=== PATIENT | male | born 1970 | race Caucasian/White ===

== ENCOUNTER 2025-01-14 02:04 | Emergency (ER) | payer OTHER, SELFPAY ==
--- NOTE | 2025-01-14 | ECG_ITS ---
Test Reason : SOB Blood Pressure : */* mmHG Vent. Rate : 85 BPM Atrial Rate : 85 BPM P-R Int : 130 ms QRS Dur : 82 ms QT Int : 372 ms P-R-T Axes : 268 -88 -86 degrees QTcB Int : 442 ms Poor data quality Normal sinus rhythm Left axis deviation Pulmonary disease pattern Abnormal ECG No previous ECGs available Referred By: Sandra Perez Electronically Signed By: Chris Ramsey
--- NOTE | ~2025-01-14 | CT_ITS ---
CLINICAL HISTORY: sob, cough, r o pna vs atelectasis Exam: CT chest without intravenous contrast. Comparison: None. Findings: Images degraded by patient motion, primarily respiratory motion. Tnfg-xa-mcvtyxyy emphysematous changes throughout the lungs. No focal areas of consolidation. No pleural effusion or pneumothorax. Overall heart size is within normal limits. No pathologically enlarged lymph nodes. No free fluid or free air within the upper abdomen. No acute bony abnormality. Impression: Emphysematous changes throughout the lungs without acute finding. This document has been electronically signed by: Yosvany Pittman MD on 01/14/2025 07:01:02
--- NOTE | ~2025-01-14 | XR_ITS ---
CLINICAL HISTORY: dyspnea CHEST X-RAY FRONTAL VIEW COMPARISON: None. FINDINGS: A single frontal view of the chest was performed. Cardiac size is within normal limits. Lungs are hyperinflated. An opacity within the lateral aspect of the right lung base might be related to a portion of one of the right lower ribs, or alternatively atelectasis/infiltrate. CT chest in the ER is advised for a more accurate assessment. Faint increased density within a portion of the left mid to lower lung is thought to be secondary to the patient's breast tissues. Remaining portions of the lungs are unremarkable. No pneumothorax or definite pleural effusion. IMPRESSION: 1. Opacity within the lateral aspect of the right lung base might be related to a portion of one of the right lower ribs, or alternatively atelectasis/infiltrate. CT chest in the ER is advised for a more accurate assessment. This document has been electronically signed by: Bob Catalan M.D. on 01/14/2025 04:35:48
[2025-01-14 02:15] VITALS: BP 150/90; PULSE 95; RESP 20; TEMP 36.4; O2SAT 94
[2025-01-14 04:33] VITALS: BP 159/84; PULSE 76; RESP 17; TEMP 36.7; O2SAT 92
--- NOTE | 2025-01-14 06:02 | PC.NURSE ---
patient arrived to ED during down time. see paper chart for further orders and med administration.
--- NOTE | 2025-01-14 06:03 | ED_ITS ---
HPI - SOB/Dyspnea General Chief Complaint: Dyspnea Stated Complaint: Diff Breathing Time Seen by Provider: 01/14/25 06:02 Source: patient and EMS Mode of arrival: EMS Limitations: no limitations History of Present Illness ED Provider: Dr. Sandra Perez HPI Narrative: Please see paper chart, patient came to the ED during down time Patient comes to the emergency room complaining of 4 days of shortness of breath. No history of asthma or COPD, admits to smoking every day for the last 10 years Denies any chest pain Per EMS, they gave him Solu-Medrol. On arrival, patient having difficulty talking due to shortness of breath. Related Data Previous Rx's ?Medication ?Instructions ?Recorded albuterol sulfate 90 mcg/actuation 2 puff inhalation Q4-6H PRN 01/14/25 aerosol inhaler shortness of breath or wheezing #8.5 grams cefuroxime axetil 500 mg tablet 500 mg PO BID #10 tabs 01/14/25 prednisone 50 mg tablet 50 mg PO DAILY #4 tabs 01/14/25 Allergies Allergy/AdvReac Type Severity Reaction Status Date / Time No Known Allergies Allergy Verified 01/14/25 06:02 Review of Systems 2 Review of Systems: Constitutional : No Weight loss, No Fever, No Chills, No Night Sweats, No Fatigue, No Malaise ENT/Mouth : No Hearing loss, No Ear Pain, No Nasal Congestion, No Sinus Pain, No Hoarseness, No sore throat, No Rhinorrhea, No Swallowing Difficulty Eyes: No Eye Pain, No Swelling, No Redness, No Foreign Body, No Discharge, No Vision Changes Cardiovascular : No Chest Pain, No SOB, No Dyspnea on Exertion, No Orthopnea, No Edema, No Palpitations Respiratory complaining of shortness of breath, wheezing Gastrointestinal : No Nausea, No Vomiting, No Diarrhea, No Constipation, No abdominal Pain, No Hematochezia, No Melena Genitourinary : no irregular bleeding, No Dysuria, No Urinary Frequency, No Hematuria, No Urinary Incontinence, No Urgency, No Flank Pain, No Urinary Flow Changes, No Hesitancy Musculoskeletal : No joint pain, No Myalgias, No Joint Swelling Skin : No Skin Lesions, No rash Neuro : No Weakness, No Numbness, No Paresthesias, No Loss of Consciousness, No Dizziness, No Headache Psych : No Anxiety/Panic, No Depression, No SI/HI/AH/VH, No Social Issues, Heme/Lymph: No Bruising, No Bleeding,No Lymphadenopathy Endocrine : No Polyuria, No Polydipsia, No Temperature Intolerance [facility] Social History Social History Advance Directives: No Advance Directives Information Provided: Yes Physical Exam 2 Vital Signs: Vital Signs: Last Vital Signs Temp 98.0 F 01/14/25 04:33 Pulse 76 01/14/25 04:33 Resp 17 01/14/25 04:33 BP 159/84 H 01/14/25 04:33 Pulse Ox 92 01/14/25 04:33 O2 Del Method [place] Nasal C annula 01/14/25 04:33 O2 Flow Rate 2 01/14/25 04:33 Const: Other: Appearance: Alert. Oriented X3. No acute distress. Eyes: Pupils equal, round and reactive to light. ENT: Pharynx normal. Neck: Normal inspection. Neck supple. No lymph nodes noted. No crepitus CVS: Normal heart rate and rhythm. Pulses normal. Normal S1 and S2 Respiratory: Bilateral wheezing, moderate air movement Abdomen: Soft and nontender. No rigidity. No distention. Skin: Skin warm and dry. Normal skin color. Normal skin turgor. Extremities: No lower extremity edema. No Lacerations. No Rash Neuro: Oriented X 3. No motor deficit. No sensory deficit. Moving all extremities. No slurred speech. CN 2 through 12 grossly intact Psych: calm, cooperative, normal affect Medical Decision Making Medical Decision Making MDM Narrative: Patient already received Solu-Medrol, receiving magnesium and nebulization treatment hour long Ambulation was attempted, oxygen saturation dropped to 89% , started wheezing all over again Patient receiving another nebulization treatment Chest x-ray: Possible pneumonia versus atelectasis. CT scan of the chest pending Patient receiving empiric IV fluids, azithromycin and ceftriaxone IV No episodes of hypotension, no fever, sepsis is not suspected CT scan shows emphysematous changes without pneumonia. I discussed with the patient that he needs to be seen by pulmonology to pulmonary function test and formally been diagnosed with COPD. Patient currently oxygen saturation is in the 97-98% range on room air. Patient is still finishing up his fluids and antibiotics. Ambulation trial pending. Patient states that he would prefer to go home, states he has an O2 monitor home, if it drops he will come right back. Patient agreeable to do an ambulation trial prior to discharge. Patient was walked a 2nd time, patient's oxygen saturation dropped again to 99%. I strongly recommended admission. Patient states that he does not want to be admitted. I discussed with the patient that we will send medications to his pharmacy. Patient states that if at home he does not have any improvement, he will return and planning to be admitted. Patient leaving AMA Differential Diagnosis Differential Diagnoses: The differential diagnosis associated with the presentation includes (Pneumonia, COPD, asthma, bronchitis) Admission/Observation Consideration of admission/observation: Escalation of care including admission/observation considered (Admission was offered and recommended, patient declined.) Lab Data MDM Lab Attestation statement: I reviewed the patient's lab results. 01/14/25 02:30 01/14/25 02:30 Labs: Lab Results 01/14/25 01/14/25 Range/Units 02:30 03:36 WBC 13.2 H (4.8-10.8) X10*3/uL RBC 4.79 (4.60-5.80) X10*6/uL Hgb 15.2 (14.0-18.0) g/dl Hct 44.7 (42.0-52.0) % MCV 93.3 (80.0-98.0) fL MCH 31.7 (27.0-33.0) pg MCHC 34.0 (31.0-36.0) g/dl RDW 13.0 (11.0-16.0) % Plt Count 347 (160-400) X10*3/uL MPV 8.8 L (9.4-12.4) fL Immature Gran % (Auto) 0.3 (0.0-0.4) % Neut % (Auto) 72.1 (45-73) % Lymph % (Auto) 13.4 L (20-40) % [place] % (Auto) 7.5 (2-11) % Eos % (Auto) 5.5 H (0-4) % Baso % (Auto) 1.2 (0-2) % Lymph # (Auto) 1.8 (1.2-4.9) X10*3/uL [place] # (Auto) 1.0 (0.1-1.2) X10*3/uL Eos # (Auto) 0.7 H (0.0-0.4) X10*3/uL Baso # (Auto) 0.2 (0.0-0.2) X10*3/uL Abs Immat Gran (auto) 0.04 H (0.00-0.03) X10*3/uL Absolute Neuts (auto) 9.5 H (2.0-8.3) x10*3/uL Absolute Nucleated RBC 0.000 (0.0-0.012) X10*3/uL Nucleated RBC % (auto) 0.0 (0.0-0.2) /100WBC VBG pH 7.33 (7.32-7.43) VBG pCO2 62 mmHg VBG pO2 30 mmHg VBG HCO3 33 H (22-26) mmol/L VBG O2 Saturation 41.0 % VBG Base Excess 5.3 mmol/L Sodium 142 (135-145) mmol/L Potassium 4.4 (3.3-5.1) mmol/L Chloride 105 (96-108) mmol/L Carbon Dioxide 28 (22-29) mmol/L Anion Gap 13 (12-20) BUN 15 (9-16) mg/dL Creatinine 0.85 (0.5-1.4) mg/dL Estim Creat Clear Calc TNP Estimated GFR > 60 Random Glucose 128 H (60-115) mg/dL Calcium 9.3 (8.4-10.2) mg/dL Magnesium 3.1 H (1.6-2.6) mg/dL Total Bilirubin 0.3 (0.0-1.0) mg/dL AST 42 H (5-37) U/L ALT 33 (0-40) U/L Alkaline Phosphatase 81 (39-117) U/L Troponin I High Sens 3.2 (<3.5-35.0) ng/L Total Protein 7.7 (6.5-8.0) g/dL Albumin 4.0 (3.5-5.0) g/dL Influenza Type A (PCR) NEGATIVE (Negative) Influenza Type B (PCR) NEGATIVE (Negative) RSV RNA Qual (PCR) NEGATIVE (Negative) SARS-CoV-2 RNA (RT-PCR) NEGATIVE (Negative) Independent Interpretation I performed an independent interpretation of an: CT Scan Radiology Impression Discussion of test interpretation with radiology: I have reviewed the radiologist's reading. Radiologist Impression: CLINICAL HISTORY: sob, cough, r o pna vs atelectasis Exam: CT chest without intravenous contrast. Comparison: None. Findings: Images degraded by patient motion, primarily respiratory motion. [id number] emphysematous changes throughout the lungs. No focal areas of consolidation. No pleural effusion or pneumothorax. Overall heart size is within normal limits. No pathologically enlarged lymph nodes. No free fluid or free air within the upper abdomen. No acute bony abnormality. Impression: Emphysematous changes throughout the lungs without acute finding. Discharge Plan Discharge Clinical Impression: Emphysema lung Patient Disposition: Left Against Medical Advice Instructions: Emphysema (ED) Additional Instructions: Please follow-up with your primary care physician tomorrow. If you have any worsening or new symptoms, please return to the emergency room or call 911 Prescriptions: New prednisone 50 mg tablet 50 mg PO DAILY Qty: 4 0RF albuterol sulfate 90 mcg/actuation HFA aerosol inhaler 2 puff inhalation Q4-6H PRN (Reason: shortness of breath or wheezing) Qty: 8.5 1RF cefuroxime axetil 500 mg tablet 500 mg PO BID Qty: 10 0RF Referrals: Abrahan Prasad MD [Physician] - 01/18/25 Print Language: Lithuanian
[2025-01-14 06:04] LABS: MANUAL DIFF FLAG NO
[2025-01-14 06:07] LABS: Basophils Absolute Auto 0.2 X10*3/uL (0.0-0.2); Basophils Percent Auto 1.2 % (0-2); Eosinophils Absolute Auto 0.7 X10*3/uL (0.0-0.4); Eosinophils Percent Auto 5.5 % (0-4); Hematocrit 44.7 % (42.0-52.0); Hemoglobin 15.2 g/dl (14.0-18.0); Imm Gran Abs Auto 0.04 X10*3/uL (0.00-0.03); Imm Gran Pct Auto 0.3 % (0.0-0.4); Lymphocytes Absolute Auto 1.8 X10*3/uL (1.2-4.9); Lymphocytes Percent Auto 13.4 % (20-40); Mean Corpuscular Hemoglobin 31.7 pg (27.0-33.0); Mean Corpuscular Volume 93.3 fL (80.0-98.0); Mean Platelet Volume 8.8 fL (9.4-12.4); Monocytes Percent Auto 7.5 % (2-11); Neutrophils Absolute Auto 9.5 x10*3/uL (2.0-8.3); Neutrophils Percent Auto 72.1 % (45-73); Platelet Count 347 X10*3/uL (160-400); Red Blood Count 4.79 X10*6/uL (4.60-5.80); White Blood Count 13.2 X10*3/uL (4.8-10.8)
[2025-01-14 06:08] LABS: Influenza A PCR NEGATIVE (Negative); Influenza B PCR NEGATIVE (Negative); Resp Syncy Virus RNA Qual PCR NEGATIVE (Negative); SARS COV2 PCR INHOUSE NEGATIVE (Negative)
--- NOTE | 2025-01-14 06:17 | MHC.EDTECH ---
Addendum entered by Rafael Jimenez 01/14/25 06:23: @0215 pt BIVA, and changed over into hospital gown, VS taken and relatively stable besides increased BP of 150/90 manually, pt was then placed on the cardiac and continuos o2 monitor.Lab work and EKG completed within the room. Call light given for safety and pt made no other needs aware at this time, pt requested a drink and was educated on the need to hold off on drinking fluids until all tests have been completed. Original Note: late entry: @0500 this tech performed an ambulation trial on this pt. The pt walked with a brisk steady gait. when asked how the pt felt he stated I feel okay, just short of breath , pt was walking around the department with 3L o2 at 93%, care home through the trial the NC was removed to see how the pt did on room air and the pt quickly desated to 89%. Pt walked back to room with brisk steady gait. RN made aware of the o2 saturation during trial.
[2025-01-14 06:18] LABS: Troponin-I High Sensitivity 3.2 ng/L (<3.5-35.0); Venous Blood Gas Refer to POC result
[2025-01-14 06:20] LABS: Alanine Aminotransferase 33 U/L (0-40); Alkaline Phosphatase 81 U/L (39-117); Anion Gap 13 (12-20); Aspartate Amino Transferase 42 U/L (5-37); Bilirubin Total 0.3 mg/dL (0.0-1.0); Blood Urea Nitrogen 15 mg/dL (9-16); Calcium 9.3 mg/dL (8.4-10.2); Carbon Dioxide 28 mmol/L (22-29); Chloride 105 mmol/L (96-108); Estimated Glomerular Filt Rate > 60; Glucose Random 128 mg/dL (60-115); Magnesium 3.1 mg/dL (1.6-2.6); Potassium 4.4 mmol/L (3.3-5.1); Sodium 142 mmol/L (135-145); Total Protein 7.7 g/dL (6.5-8.0)
--- OUTSIDE RECORDS SUMMARY | 2025-01-14 06:28 | XMS_ITS | Clinical Summary ---
Author Organization 175 [facility] Address [address] [place] [address] Phone Care Team Providers Care Parking Enforcement Officer Name Role Phone Jesus Manuel Bernard MD Primary Care Provider Allergies No known active allergies Medications DIETARY SUPPLEMENT ORAL Cobalamin Combinations (B-12 Plus Folic Acid) 2500-400 MCG TABLET DISPERSIBLE Route: Take 1 Tablet by mouth daily. - Oral 07/30/20 24 Active cholecalcifer ol (VITAMIN D-3) 50 mcg (2,000 unit) tablet 1 (one) time each day. Route: Take 1 Capsule by mouth daily. - Oral 07/29/20 24 Active gabapentin (NEURONTIN) 300 mg capsule Take 1 capsule (300 mg total) by mouth 2 (two) times a day. Start with 1 tab at bedtime for 3 days then can increase to BID if needed. 60 each 12/26/19 25 025 Active Additional Information Patient taking differently: 600 mgoral 2 times daily,Take 2 tablets nightly., Reported on 01/07/2025 hydrOXYzine HCL (ATARAX) 25 mg tablet Take 1 tablet (25 mg total) by mouth 1 (one) time. Active doxepin 3 mg tablet Take 3 mg by mouth 1 (one) time each day. 30 tablet 5 01/08/20 25 Active gabapentin (NEURONTIN) 100 mg capsule Take 1 Capsule by mouth 2 times daily. 10/25/19 24 025 Discontinued traZODone (DESYREL) 100 mg tablet TAKE 1 TABLET BY MOUTH EVERYDAY AT BEDTIME 06/21/20 24 04/03/2 025 Discontinued(D uplicate order) hydrOXYzine HCL (ATARAX) 25 mg tablet hydrOXYzine (ATARAX) 25 MG tablet 07/27/20 025 Discontinued(P atient Discharge) citalopram (CeleXA) 40 mg tabletIndicat ions:Generali zed anxiety disorder Take 1 tablet (40 mg total) by mouth 1 (one) time each day. 90 each 1 09/02/20 025 Discontinued(P atient Discharge) sertraline (ZOLOFT) 50 mg tablet Take 1 tablet (50 mg total) by mouth 1 (one) time each day in the morning. 07/14/20 025 Discontinued(D uplicate order) sertraline (ZOLOFT) 100 mg tablet Take 1 tablet (100 mg total) by mouth 1 (one) time each day in the morning. 09/17/20 025 Discontinued(P atient Discharge) oxyCODONE (OXY-IR) 5 mg immediate release capsule Take 1-2 capsules (5-10 mg total) by mouth every 6 (six) hours if needed for severe pain. Max Daily Amount: 40 mg 40 capsule 12/15/19 025 Discontinued(P atient Discharge) Active Problems Problem Noted Date Diagnosed Date Radiculopathy, lumbar region 12/03/2024 Spinal stenosis of lumbar re gion with neurogenic claudication 12/01/2024 Assessment & Plan (12/25/2024 1:11 PM EDT): Patient is 11 days s/p right L4-5, right L5-S1 MIS discectomy/decompression. He states he notes some improvement in the right leg, no longer gets cramping in the calf, his calf feels stronger, decreased numbness tingling in the right leg. He states his incisional pain does seem to be getting better each day, originally had a lot of low back pain. His main concern today is that he gets shooting pain down the right buttock and posterior leg when he stands and walks. When he first gets up in the morning his leg feels achy. He ran out of gabapentin postop, has been off of it >1-week. He states 95% of the symptoms are in the right leg, 5% left leg, similar to preop. He has not had any fevers, wound drainage. Mr. Wakefield has residual right posterior leg pain, see some improvements but still has difficulty standing. Somewhat contributing to this could be that he has not taken his gabapentin in over a week, I sent in a refill on gabapentin, I increased the dose from the 100 tabs at bedtime to 300 mg at bedtime, could take 2 tabs daily if needed. Hopefully with time he continues to note improvement. He brought in a disability form, I explained we can only do short-term postop coverage up to 2 months, I discussed with Dr. Rivera prior to filling out the form. We cannot do additional disability forms after that. He appears to understand. He has follow-up appointment with Dr. Rivera in 6 weeks. Assessment & Plan (12/01/2024 2:35 PM EST): Patient states he has had issues with his back for a couple years, things have progressively worsened, states about 2 or 3 months ago he noticed that his right calf was thinner and soft, has been getting calf cramping. He has fairly constant pain and numbness in the right leg, if he sits for a while will get numbness in the left leg as well, notes hunching forward is his best position. Pain is worse in the right posterior leg. Walking on uneven ground, or if he is laying on his back and is trying to move his hips left and right, he gets severe pain in his back. He has difficulty standing up to 30 minutes. He has tried physical therapy but did not tolerate it, is s/p caudal injection October 16, 2024 with 50% reduction in pain temporarily, right hip bursa injection October 30, 2024 which helped somewhat. He is on gabapentin twice daily, does not feel it helps. He has not been working for approximately 1 year, has had flareups of his chronic pancreatitis on and off, nothing recently, has quit drinking alcohol. He smokes 1/4 ppd. Patient had MRI lumbar spine 11/06/2024 at [facility] that shows severe stenosis at L4-5 with large left paracentral/central disc protrusion, ligamentous hypertrophy, has small right paracentral disc bulging with annular tear at L5- S1, mild-moderate foraminal narrowing. I reviewed MRI images with patient and his mother in detail. Mr. Wakefield has severe stenosis L4-5 likely responsible for his back and bilateral leg pain and numbness, that improves with hunching forward, worse with standing for a length of time. He also has right L5-S1 disc bulging with some lateral recess stenosis, but not severe, Dr. Rivera would like to check EMG/NCS study with his history of calf atrophy, this is something that may not improve with surgery. She likely will offer L4-5 decompression and discectomy, +/- right L5-S1 discectomy, will decide after seeing EMG results. We had a long discussion about surgery, risks and benefits, including but not limited to need for general anesthesia, risk of [place] or stroke, potential for no improvement in symptoms postop, risk for hematoma (no NSAIDs, fish oil 1 week prior to surgery), infection (Hibiclens body wash and instructions given to patient), damage to a nerve root causing permanent numbness or weakness, spinal fluid leak. Patient states his symptoms are significant and affecting his daily life, no longer can tolerate it, would like to proceed with surgery. All questions answered. Chronic midline low back pain with bilateral sci atica 09/02/2024 Alcohol-induced chronic panc reatitis (CMS/HCC V24, CMS/HCC V28) 07/31/2024 Generalized anxiety disorder 07/31/2024 History of alcohol abuse 07/31/2024 Other insomnia 07/31/2024 Anxiety 2022 Encounters Date Type Department Care Team Description 01/13/2025 Telephone Adult Medicine [address] [phone] Jesus Manuel Bernard MD 01/07/2025 1:00 PM EDT Office Visit Adult Medicine [address] [phone] Shannon Yen PA Primary insomnia (Primary Dx); Generalized anxiety disorder; History of alcohol abuse; Tobacco use disorder; Prediabetes; Hypercholesterolemi a 12/25/2024 11:15 AM EDT Office Visit Neurosurgery [place] [address] [place] [phone] Nel Hinton PA Spinal stenosis of lumbar region with neurogenic claudication (Primary Dx) 12/14/2024 7:33 AM EDT Anesthesia Event [facility] Main OR [address] [place] [phone] Carlo Rodgers MD 12/14/2024 7:30 AM EDT - 12/14/2024 9:30 AM EDT Surgery [facility] OR [address] [place] [phone] Chinyere Rivera MD Rt L4-5 & Rt L5-S1 METRX/DISCECTOMY [72040 (CPT??) +1 more] 12/14/2024 5:59 AM EDT - 12/14/2024 11:50 AM EDT Hospital Encounter [facility] OR [address] [place] [phone] Chinyere Rivera MD Discharge Disposition: Home or Self Care 12/11/2024 3:11 PM EST - 12/11/2024 11:59 PM EST Hospital Encounter Bone Density - [address] [phone] Encounter for screening for osteoporosis Discharge Disposition: Home or Self Care 12/09/2024 Telephone Gastroenterology [address] [phone] Erick Solano PA 12/03/2024 Telephone Neurosurgery [facility] [address] [phone] Nel Hinton PA Results (EMG/NCS results 12/02/24) 12/01/2024 10:30 AM EST Consult Neurosurgery [facility] [address] [phone] Nel Hinton PA Spinal stenosis of lumbar region with neurogenic claudication (Primary Dx); Radiculopathy of lumbar region 12/01/2024 Telephone Neurosurgery [facility] [address] [phone] Renetta Poole MA Appointment (EMG/NCS appointment scheduled for 12/02/24 @ 1:40pm w/Dr. Holguin at [facility]. Pt aware) 11/06/2024 10:33 AM EST - 11/06/2024 11:59 PM EST Hospital Encounter Radiology Department - [address] [phone] Spondylosis, unspecified Discharge Disposition: Home or Self Care from Last 3 Months Immunizations Name Administration Dates Next Due Influenza Quadravalent, MDCK , 0.5ml, preservative free (Flucelvax) 6mo and older 11/03/2021 Influenza trivalent, MDCK, 0 .5mL, preservative free (Flucelvax) 6mo and older 09/02/2024 Pfizer SARS-CoV-2 COVID-19, mRNA, LNP-S, preservative free 03/20/2021,03/01/2021 Pneumococcal conjugate 20 va lent (Prevnar 20, PCV 20) 2mo and older 09/02/2024 Tdap Tetanus diptheria acell ular pertussis (Boostrix; Adacel) 7yo and older 2022 Surgical History Surgery Date Site/Laterality Comments COLONOSCOPY OTHER SURGICAL HISTORY Right wrist 2019 and ankle 1996 surgery, OTHER SURGICAL HISTORY 10/07/2016 - 10/06/2017 GI surgery for diverticulitis, part of colon removed BACK SURGERY 12/14/2024 Right L4-5, right L5-S1 minimally invasive discectomy/decompression, Dr. Rivera Medical History Medical History Date Comments Anxiety state Alcohol dependence ([facility] V24, [facility] V28) Alcohol abuse with alcohol-i nduced anxiety disorder (CMS/HCC V24, CMS/HCC V28) 06/19/2023 History of chronic pancreatitis Depression Arthritis Joint pain Social History Tobacco Use Types Packs/Day Years Used Date Smoking Tobacco: Every Day Smokeless Tobacco: Never Tobacco Cessation:Ready to Q uit: Not Asked; Counseling Given: Not Answered Alcohol Use Standard Drinks/Week Comments Not Currently 0 (1 standard drink = 0.6 oz pur e alcohol) Housing Instability Answer Date Recorde d Are you worried that in the next 2 months you may not have stable housing? No 01/07/2025 Food Access & Nutrition Answer Date Rec orded Do you have access to a vari ety of food including fruits and vegetables? Yes 01/07/2025 Access to Healthcare Answer Date Record ed Within the last 3 months, ho w many times did you visit the emergency department for your medical care? 0 01/07/2025 Health Literacy Answer Date Recorded How often do you need to hav e someone help you when you read instructions, pamphlets, or other written material from your doctor or pharmacy? Never 01/07/2025 Caregiver: How often do you need to have someone help you when you read instructions, pamphlets, or other written material from your doctor or pharmacy? Not on file 01/07/2025 Financial Risk Answer Date Recorded How hard is it for you to pa y for the very basics like food, housing, medical care, and air conditioning / heating? Not very hard 01/07/2025 Transportation Answer Date Recorded Has the lack of transportati on kept you from meetings, work, or from getting things needed for daily living? No Has the lack of transportati on kept you from medical appointments or from getting medications? No 01/07/2025 Social Isolation Answer Date Recorded How often do you feel lonely or isolated from th ose around you? Never 01/07/2025 Food Risk Answer Date Recorded Within the past 12 months we worried whether our food would run out before we got money to buy more. Never true 01/07/2025 Within the past 12 months th e food we bought just didn't last and we didn't have money to get more. Never true 01/07/2025 Dependent Care Answer Date Recorded Do you need help finding or paying for care for your loved ones. For example, child care education coordinator or elderly care for an older adult? No 01/07/2025 Education Answer Date Recorded Do you think completing more education or training, like finishing a GED, going to college, or learning a trade, would be helpful for you? No 01/07/2025 Employment and Income Answer Date Recor ded During the last four weeks, have you been actively looking for work? No 01/07/2025 Living Situation Answer Date Recorded What is your living situation? 0 01/07/2025 Sex and Gender Information Value Date Recorded Sex Assigned at Male 12/11/2024 11:53 AM EST Legal Sex Male 7:03 PM EST Gender Identity Male 12/11/2024 11:53 AM EST Sexual Orientation Straight 12/11/2024 11 :53 AM EST Obstetrics History Last Filed Vital Signs Vital Sign Reading Time Taken Comments Blood Pressure 130/60 01/07/2025 1:14 PM EDT Pulse 95 01/07/2025 1:14 PM EDT Temperature 37 ??C (98.6 ??F) 01/07/2025 1:14 PM EDT Respiratory Rate 16 01/07/2025 1:14 PM EDT Oxygen Saturation 95% 01/07/2025 1:38 PM EDT Inhaled Oxygen Concentration - - Weight 79.2 kg (174 lb 9.6 oz) 01/07/2025 1:14 P M EDT Height 175.3 cm (5' 9 ) 01/07/2025 1:14 PM EDT Body Mass Index 25.78 01/07/2025 1:14 PM EDT Plan of Treatment Upcoming Encounters Date Type Department Care Team (Late st Contact Info) Description 01/26/2025 1:00 PM EDT Office Visit Adult Medicine [facility] [address] [place] [phone] Jesus Manuel Bernard MD [address] [place] [address] 02/26/2025 10:45 AM EDT Office Visit [facility] [address] [phone] Chinyere Rivera MD [address] [place] [address] Health Maintenance Due Date Last Done Comments Hepatitis A Vaccines (1 of 2 - Risk 2-dose series) 01/30/1991 Hepatitis B Vaccines (1 of 3 - 19+ 3-dose series) 01/30/1991 Zoster Vaccines (1 of 2) 01/30/2022 Colorectal Cancer Screening: Colonoscopy 09/08/2022 HIV Screening 09/08/2022 COVID-19 Vaccine ( - 2023-2 5 season) 2024 03/20/2021, 03/01/2021 Depression Screening 07/27/2025 07/27/2024 Social Influencers of Health Screening 01/07/2026 01/07/2025 Cholesterol Screening (Lipid Panel) 11/03/2026 11/03/2021 DTaP,Tdap,and Td Vaccines (2 - Td or Tdap) 02/01/2032 2022 Hepatitis C Screening Completed 07/28/2024 Influenza Vaccine Completed 09/02/2024, 11/03/2021 Pneumococcal Vaccine: 50+ Years Completed 09/02/2024 Pneumococcal Vaccine: Pediatrics (0 to 5 Years) and At-Risk Patients (6 to 64 Years) Completed 09/02/2024 HIB Vaccines Aged Out No longer eligi ble based on patient's age to complete this topic HPV Vaccines Aged Out No longer eligi ble based on patient's age to complete this topic IPV Vaccines Aged Out No longer eligi ble based on patient's age to complete this topic MMR Vaccines Aged Out No longer eligi ble based on patient's age to complete this topic Meningococcal ACWY Vaccine Aged Out N o longer eligible based on patient's age to complete this topic Meningococcal B Vaccine Aged Out No l onger eligible based on patient's age to complete this topic RSV Immunization Patients Under 20 months Aged Out No longer eligible b ased on patient's age to complete this topic Varicella Vaccines Aged Out No longer eligible based on patient's age to complete this topic Medical Devices Implanted Type Area Nutritional Health Coach Device Identifier Shelf Expiration Date Model / Serial / Lot Powder [employer] Absorb Gel - Sna - [id number] Implanted:Qty: 1 on 12/14/2024 by Chinyere Rivera MD at [facility] [employer] Right: Spine Lumbar [employer] 09/14/20261977 / NA / [id number] Description:MIXED WITH 10,00 0 UNITS THROMBIN Procedures Procedure Name Priority Date/Time Associated Diagnosis Comments OXYGEN THERAPY, ADULT Routine 12/14/2024 9:24 AM EDT XR SPINE 1 VIEW Routine 12/14/2024 8:56 AM EDT TH AN ENDOTRACHEAL(NO CHARGE) Routine 12/14/2024 7:56 AM EDT VT ZAMBRANO W DECMPR NVR ROOT EXC HIVD 1 INTERSPACE EACH ADD INTERSPACE CER/LUMB 12/14/2024 7:32 AM EDT Radiculopathy, lumbar region Case Notes C-ARM, MICROSCOPE, CHEST ROLLS, METRX TUBES Special Needs TIME CHANGE VIA PHONE W/JAZMÍN CB 12/04 8:35 VT ZAMBRANO W DECMPR NVR ROOT EXC HIVD 1 INTERSPACE 12/14/2024 7:32 AM EDT Radiculopathy, lumbar region Case Notes C-ARM, MICROSCOPE, CHEST ROLLS, METRX TUBES Special Needs TIME CHANGE VIA PHONE W/JAZMÍN CB 12/04 8:35 PROCEDURAL ECG Routine 12/14/2024 6:24 AM EDT BD BONE DENSITY DXA AXIAL SKELETON Routine 12/11/2024 3:44 PM EST Encounter for screening for osteoporosis MR LUMBAR SPINE WO CONTRAST Routine 11/06/2024 11:09 AM EST Spondylosis, unspecified HEPATITIS C SCREENING Routine 07/28/2024 DEPRESSION SCREENING Routine 07/27/2024 LIPID PANEL Routine 11/03/2021 from Last 3 Months or Most Recently Relevant to Health Maintenance Results * XR Spine 1 View (12/14/2024 8:56 AM EDT) Anatomical Region Laterality Modality Spine Radio Fluoroscop y 12/14/2024 10:0 4 AM EDT Impressions 12/14/2024 10:06 AM EDT Impression: Instrument marker at L5-S1. Telerad WINIFRED ([id number]) -------- FINAL REPORT -------- Dictated By: Lo Melgoza Dictated Date: 12/14/2024 10:04 ET Assigned Physician: Lo Melgoza Reviewed and Electronically Signed By: Lo Melgoza Signed Date: 12/14/2024 10:06 ET Workstation ID: [id number] Transcribed By: Self Edit Transcribed Date: 12/14/2024 10:04 ET Narrative 12/14/2024 10:06 AM EDT History: Lumbar spine surgery Findings: A single digital spot lateral image of the lumbar spine is submitted from the OR. There are no comparison studies at this institution. Level check was requested. Reported to the OR: The instrument marker projects posteriorly at the level of L5-S1 assuming 5 nonrib-bearing lumbar-type vertebra. Additional images obtained in the OR were not presented for radiologic interpretation. Fluoroscopy was provided in the OR by a cardiac cath technologist. Cumulative Dose: ??5.32 mGy Procedure Note Lo Melgoza MD - 12/14/2024 History: Lumbar spine surgery Findings: A single digital spot lateral image of the lumbar spine is submitted fromthe OR. There are no comparison studies at this institution. Level checkwas requested. Reported to the OR: The instrument marker projects posteriorly at thelevel of L5-S1 assuming 5 nonrib-bearing lumbar-type vertebra. Additional images obtained in the OR were not presented for radiologicinterpretation. Fluoroscopy was provided in the OR by a cardiac cath technologist. Cumulative Dose: 5.32 mGy IMPRESSION: Impression: Instrument marker at L5-S1. Telerad PA ([id number]) -------- FINAL REPORT -------- Dictated By: Lo Melgoza Dictated Date: 12/14/2024 10:04 ET Assigned Physician: Lo Melgoza Reviewed and Electronically Signed By: Lo Melgoza Signed Date: 12/14/2024 10:06 ET Workstation ID: [id number] Transcribed By: Self Edit Transcribed Date: 12/14/2024 10:04 ET us Chinyere Rivera MD IMG XR PROCEDURES Final Result * TH AN ENDOTRACHEAL(NO CHARGE) (12/14/2024 7:56 AM EDT) Kamila Morgan CRNA - 12/14/2024 7:56 AM EDT Kamila Charles CRNA ? 12/14/2024 ??7:57 AM General Information and Staff Patient location during procedure: OR Resident/ORTHOPHOTO TECH/DRAFTSMAN: Kamila Charles CRNA Performed: resident/ORTHOPHOTO TECH/DRAFTSMAN/CAA Performed by: Kamila Charles CRNA Authorized by: Carlo Rodgers MD ?? Intubation Airway not difficult Urgency: elective Final Airway Details Successful airway: ETT Successful intubation technique: direct laryngoscopy Facilitating devices/methods: intubating stylet Blade: Jennifer Blade size: #3 ETT size (mm): 8.0 Cormack-Lehane Classification: grade I - full view of glottis Placement verified by: chest auscultation and capnometry Measured from: lips ETT to lips (cm): 23 Number of attempts at approach: 1Final airway type: endotracheal airway Indications and Patient Condition Indications for airway management: anesthesia and airway protection Spontaneous ventilation: present Sedation level: Yes Preoxygenated: yes Soft Tissue Damage: No Dentition Unchanged: Yes Patient position: sniffing MILS maintained throughout Mask difficulty assessment: 1 - vent by mask us Carlo Rodgers MD ANESTHESIA ORDERABLES Final R esult * ECG 12 lead - Procedural (No Charge) (12/14/2024 6:24 AM EDT) Ventricular Rate ECG 70 BPM GEMUSE Atrial Rate 70 BPM GEMUSE P-R Interval 138 ms GEMUSE QRS Duration 86 ms GEMUSE Q-T Interval 400 ms GEMUSE QTc 432 ms GEMUSE P Wave [place] 77 degrees GEMUSE R [place] 77 degrees GEMUSE T [place] 56 degrees GEMUSE ECG Interpretation Normal sinus rhythm with sinus arrhythmia Poor R wave progression Abnormal ECG When compared with ECG of 04-APR-2017 11:17, Poor R wave progression , new in V2, possibly lead placement variation Confirmed by CHIQUI PEREZ ([id number]) on 12/14/2024 6:41:26 PM GEMUSE 12/14/2024 6:24 AM EDT 12/14/2024 6:41 PM EDT us Chinyere Rivera MD ECG ORDERABLES Final Result GEMUSE * BD Bone Density DXA Axial Skeleton (12/11/2024 3:44 PM EST) Anatomical Region Laterality Modality Wrist, Hip, L-spine Bone Densito metry 12/11/2024 5:10 PM EST Impressions 12/11/2024 5:11 PM EST Normal bone density. The NOF guidelines recommend that FDA approved medical therapies be considered in postmenopausal women and men age >50 years with a: i. Hip or vertebral (clinical or morphometric) fracture ii. T score of < -2.5 at the spine or hip iii. 10 year fracture probability by FRAX of >3% for hip fracture, or >20% for major osteoporotic fracture PLEASE NOTE: ?? W.H.O. classification is based on lowest measured density at the spine, femoral neck, or total hip.This classification has prognostic significance when applied to post menopausal women and older men. 1) ??The World Health Organization defines low BMD as follows: ?T-score ? Normal ? at or > -1 Osteopenia ? < -1 and ??> - 2.5 Osteoporosis ? at or < -2.5 without fractures Established osteoporosis ? < -2.5 with fractures -------- FINAL REPORT -------- Dictated By: Millie Huynh Dictated Date: 12/11/2024 17:10 ET Assigned Physician: Millie Huynh Reviewed and Electronically Signed By: Millie Huynh Signed Date: 12/11/2024 17:11 ET Workstation ID: [id number] Transcribed By: Self Edit Transcribed Date: 12/11/2024 17:10 ET Narrative 12/11/2024 5:11 PM EST Clinical history: osteoporosis Scans of the lumbar spine and hips were performed on a [employer] fan beam bone densitometer. ? Bone mineral density measurements and associated T and Z scores respectively are as follows: Lumbar Spine: L1-L4 BMD: 1.019 g/cm2 ? T-Score: -0.7 ? Z-Score: -0.2 Left Proximal Femur: Neck BMD: 0.816 g/cm2 ? T-Score: -0.8 ?? Z-Score: 0 Total BMD: 0.977 g/cm2 ? T-Score: -0.4 ?Z-Score: 0 Compared with standards for the young adult, lowest measured bone density places the patient in the W.H.O. normal range. Procedure Note Millie Huynh MD - 12/11/2024 Clinical history: osteoporosis Scans of the lumbar spine and hips were performed on a [employer] beam bone densitometer. Bone mineral density measurements and associated T and Z scoresrespectively are as follows: Lumbar Spine: L1-L4 BMD: 1.019 g/cm2 T-Score: -0.7 Z-Score: -0.2 Left Proximal Femur: Neck BMD: 0.816 g/cm2 T-Score: -0.8 Z-Score: 0 Total BMD: 0.977 g/cm2 T-Score: -0.4 Z-Score: 0 Compared with standards for the young adult, lowest measured bone densityplaces the patient in the W.H.O. normal range. IMPRESSION: Normal bone density. The NOF guidelines recommend that FDA approved medical therapies beconsidered in postmenopausal women and men age >50 years with a: i. Hip or vertebral (clinical or morphometric) fracture ii. T score of < -2.5 at the spine or hip iii. 10 year fracture probability by FRAX of >3% for hip fracture, or >20%for major osteoporotic fracture PLEASE NOTE: W.H.O. classification is based on lowest measured density at the spine,femoral neck, or total hip.This classification has prognostic significancewhen applied to post menopausal women and older men. 1) The World Health Organization defines low BMD as follows: T-score Normal at or > -1 Osteopenia < -1 and > -2.5 Osteoporosis at or < -2.5 withoutfractures Established osteoporosis < -2.5 with fractures -------- FINAL REPORT -------- Dictated By: Millie Huynh Dictated Date: 12/11/2024 17:10 ET Assigned Physician: Millie Huynh Reviewed and Electronically Signed By: Millie Huynh Signed Date: 12/11/2024 17:11 ET Workstation ID: [id number] Transcribed By: Self Edit Transcribed Date: 12/11/2024 17:10 ET us Jesus Manuel Bernard MD IMG DXA PROCEDURES Fin al Result * MR Lumbar Spine wo Contrast (11/06/2024 11:09 AM EST) Anatomical Region Laterality Modality L-spine, Spine Magnetic Resonan ce 11/06/2024 3:06 PM EST Impressions 11/06/2024 3:58 PM EST 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 ??Findings are most prominent in the mid and lower spine. ??Severe spinal canal narrowing at L4-5. ??Moderate to severe neural foraminal narrowing at L3-4 (right), L4-5 (left), and L5-S1 (right) with potential impingement as described. POS - [id number] -------- FINAL REPORT -------- Dictated By: Caroline Willingham Dictated Date: 11/06/2024 15:06 ET Assigned Physician: Caroline Willingham Reviewed and Electronically Signed By: Caroline Willingham Signed Date: 11/06/2024 15:58 ET Workstation ID: [id number] Transcribed By: Self Edit Transcribed Date: 11/06/2024 15:06 ET Narrative 11/06/2024 3:58 PM EST EXAM: Lumbar spine MRI HISTORY: ??Bilateral lower extremity lumbar radiculopathy. COMPARISON: None CORRELATION: ??Lumbar spine radiography 10/25/2023, CT abdomen and pelvis 07/15/2024 TECHNIQUE: Exam performed on a 1.5 Jesica high-field MRI scanner. ??Multiplanar imaging performed without contrast. FINDINGS: Conus medullaris terminates at T12-L1 which is within normal limits. ??No abnormal cord signal detected. Vertebral body heights are maintained. ??Mild edematous endplate signal changes at L4-5 and superiorly at L3. ??Heterogeneous fatty marrow signal which is likely age-related. ??Baseline diffuse narrowing of the lumbar spinal canal due to congenitally shortened pedicles. T11-T12: Minimal disc bulging on the sagittal only sequences. ??Mild bilateral neural foraminal narrowing due to facet arthropathy. ??No significant spinal canal stenosis. T12-L1: No significant disc bulging or evidence of a disc protrusion or extrusion. ??No significant neural foraminal narrowing or spinal canal stenosis. L1-L2: No significant disc bulging or evidence of a disc protrusion or extrusion. ??No significant neural foraminal narrowing or spinal canal stenosis. L2-L3: Minimal disc desiccation. ??Diffuse disc bulging asymmetrically prominent to the right which contacts the descending nerve roots. ??Annular tear in the right posterior lateral/lateral aspect of the disc. ??Mild right neural foraminal narrowing. ??No significant left neural foraminal narrowing. ??Mild to moderate narrowing of the spinal canal. L3-L4: Mild disc desiccation and diffuse disc bulging. ??Annular tears in the posterior central disc and left posterolateral disc. ??Foraminal endplate spurring bilaterally. ??Moderate to severe right neural foraminal narrowing with possible compression on the exiting nerve root. ??Mild left neural foraminal narrowing. ??Mild to moderate narrowing of the spinal canal. L4-L5: Disc desiccation, mild loss of disc height, diffuse disc bulging, and a superimposed large left paracentral/central disc protrusion. ??Bilateral foraminal endplate spurring. ??Mild bilateral facet arthropathy. ??Severe left neural foraminal narrowing with probable compression on the exiting nerve root. ??Moderate right neural foraminal narrowing. ??Severe narrowing of the spinal canal which is largely due to disc disease. L5-S1: Mild disc desiccation and disc bulging. ??Small right paracentral/central disc protrusion with annular tearing, no compression on the right descending nerve root. ??Bilateral facet arthropathy. ??Moderate right neural foraminal narrowing with possible compression on the exiting nerve root. ??Milder left neural foraminal narrowing. ??No significant spinal canal stenosis. Procedure Note Caroline Willingham MD - 11/06/2024 EXAM: Lumbar spine MRI HISTORY: Bilateral lower extremity lumbar radiculopathy. COMPARISON: None CORRELATION: Lumbar spine radiography 10/25/2023, CT abdomen and [id number]/15/2024 TECHNIQUE: Exam performed on a 1.5 [employer] high-field MRI scanner.Multiplanar imaging performed without contrast. FINDINGS: Conus medullaris terminates at T12-L1 which is within normal limits. Noabnormal cord signal detected. Vertebral body heights are maintained. Mild edematous endplate signalchanges at L4-5 and superiorly at L3. Heterogeneous fatty marrow signalwhich is likely age- related. Baseline diffuse narrowing of the lumbarspinal canal due to congenitally shortened pedicles. T11-T12: Minimal disc bulging on the sagittal only sequences. Mildbilateral neural foraminal narrowing due to facet arthropathy. Nosignificant spinal canal stenosis. T12-L1: No significant disc bulging or evidence of a disc protrusion orextrusion. No significant neural foraminal narrowing or spinal canalstenosis. L1-L2: No significant disc bulging or evidence of a disc protrusion orextrusion. No significant neural foraminal narrowing or spinal canalstenosis. L2-L3: Minimal disc desiccation. Diffuse disc bulging asymmetricallyprominent to the right which contacts the descending nerve roots. Annulartear in the right posterior lateral/lateral aspect of the disc. Mildright neural foraminal narrowing. No significant left neural foraminalnarrowing. Mild to moderate narrowing of the spinal canal. L3-L4: Mild disc desiccation and diffuse disc bulging. Annular tears inthe posterior central disc and left posterolateral disc. Foraminalendplate spurring bilaterally. Moderate to severe right neural foraminalnarrowing with possible compression on the exiting nerve root. Mild leftneural foraminal narrowing. Mild to moderate narrowing of the spinalcanal. L4-L5: Disc desiccation, mild loss of disc height, diffuse disc bulging,and a superimposed large left paracentral/central disc protrusion.Bilateral foraminal endplate spurring. Mild bilateral facet arthropathy.Severe left neural foraminal narrowing with probable compression on theexiting nerve root. Moderate right neural foraminal narrowing. Severenarrowing of the spinal canal which is largely due to disc disease. L5-S1: Mild disc desiccation and disc bulging. Small rightparacentral/central disc protrusion with annular tearing, no compressionon the right descending nerve root. Bilateral facet arthropathy.Moderate right neural foraminal narrowing with possible compression on theexiting nerve root. Milder left neural foraminal narrowing. Nosignificant spinal canal stenosis. IMPRESSION: Multilevel degenerative changes associated with congenital lumbar spinalstenosis. Findings are most prominent in the mid and lower spine. Severespinal canal narrowing at L4-5. Moderate to severe neural foraminalnarrowing at L3-4 (right), L4-5 (left), and L5-S1 (right) with potentialimpingement as described. POS - [id number] -------- FINAL REPORT -------- Dictated By: Caroline Willingham Dictated Date: 11/06/2024 15:06 ET Assigned Physician: Caroline Willingham Reviewed and Electronically Signed By: Caroline Willingham Signed Date: 11/06/2024 15:58 ET Workstation ID: [id number] Transcribed By: Self Edit Transcribed Date: 11/06/2024 15:06 ET Result [facility] Heriberto VITALE IMG MRI PROCEDURES Final Resul t * Hepatitis C Screening (07/28/2024) [facility] Hepatitis C Screening Abstracted Result [facility] Provider [place] HEALTH MAINTENANCE Final Result * Depression Screening (07/27/2024) [facility] Depression Screening Abstracted Result [facility] Provider HEALTH MAINTENANCE Final Result * (ABNORMAL) Lipid panel (11/03/2021) [facility] LDL/HDL Ratio 2 0 - 4 Triglycerides 91 0 - 150 mg/dL Cholesterol 215(A) 0 - 200 mg/dL HDL 106 >=40 mg/dL LDL Cholesterol 91 0 - 100 mg/dL Blood Venous blood specimen / Unknown us Historical Provider LAB BLOOD ORDERABLES Yisel l Result from Last 3 Months or Most Recently Relevant to Health Maintenance Insurance [facility] Advance Directives * Full Code - Default (Latest Code Status on File) Date Activated Date Inactivated Comments 12/14/2024 6:07 AM 12/14/2024 1:55 PM This is orde r is used when code status has not been discussed with the patient, or code status is otherwise unknown/unconfirmed To update the patient's code status, place a code status order. Do not modify or discontinue any currently active code status orders. Care Teams Parking Enforcement Officer Relationship Specialty Start Date End Date Jesus Manuel Bernard MD [address] [place] [address] PCP - General 07/13/24
--- OUTSIDE RECORDS SUMMARY | 2025-01-14 06:28 | XMS_ITS | Data Portability ---
Author Organization [facility], [address] Address [address] [place] [address] Assessment No assessment recorded. Plan of Treatment Reminders Order Date Submit Date Provider Last Modified By Organization Details Last Modified Time Details Appointments None recorded. Lab None recorded. Referral gastroente rologist referral - Recurrent abdominal pain. previously diagnosed with pancreatit is . has been an alcoholic in the past, stopped drinking 2 years ago. 2023 024 [facility], [address] [place] [address], [id number], 4 19:07:35 Procedures None recorded. Surgeries None recorded. Imaging None recorded. Medication Orders None recorded. Patient TargetsNo targets recorded. Patient Instructions Encounter Date Encounter Id Patient Instructions Last Modified By Organization Details Last Modified Time 04/03/2024 [id number] abdominal pain: care instructions [email or web address] Not available 04/03/2024 15:34:09 Reason for Referral Numerical Control Operator Referral for Abdominal pain Recurrent abdominal pain. previously diagnosed with pancreatitis . has been an alcoholic in the past, stopped drinking 2 years ago. Referring Physician: Chloé Sainz, Urgent Care, Encounter Date: 04/03/2024 Problems Name Problem SNOMED Code Status Onset Date Resolution Date Notes Provider Name and Address Organization Details Recorded Time Abdominal pain 31232935 Active 024 Chloé Sainz NP [address] [place], [address] , [facility] 15:30:53 Problem Notes None recorded. Medical Equipment None Reported. Allergies No known drug allergies Medications Name Sig Start Date Stop Date Status Note LastModified by Organization Details LastModified Time trazodone active Not Available Not Nancy ilable Not Available Vitals Date Recorded Oxygen saturation Oxygen saturation in Arterial blood by Pulse oximetry Heart rate Body temperature Body height Body mass index (BMI) Body weight Systolic blood pressure Diastolic blood pressure Provider Name and Address Organization Details Last Updated DateTime 4 96 % 96 % 89 /min 98.1 [degF] 177.8 cm 25.1 kg/m2 75407.6 6 g 109 mm[Hg] 63 mm[Hg] Mandy Hamilton PA - [facility] 4 13:58:50 Social History None recorded. Functional Status None recorded. Mental Status None recorded. Family History Nothing Reported. Medical History No medical history recorded. Past Encounters Encounter ID Performer Location Encounter Start Date Encounter Closed Date Diagnosis/Indication Diagnosis SNOMED-CT Code Diagnosis ICD10 Code Diagnosis Note [id number] [place] [address] [address] 04/03/2024 13:00:18 04/03/2024 15:36:50 Abdominal pain 80888060 R10.9 Based on your history and presentati on - you have Acute Abdominal Pain. possible pancreatit is flare up But We are limited in our diagnostic capabiliti es in our center and feel that it would be best to go to the Emergency Room if your symptoms worsen in the next 24 hours. Based on your presentati on , access to lab work and advanced imaging might be indicated . These things are typically necessary to give you an accurate diagnosis to what is causing your pain. Abdominal condition have the risk of having significan t complicati ons if not diagnosed and treated appropriat elan. This may include sepsis or . Differenti al: Diverticul itis, Appendicit is, C-diff, Gastroente ritis, Medication Side Effect Health Concerns Section Related Observation LastModified by Organization Detai ls LastModified Time None Recorded Concern Status LastModified by Organization Details LastModified Time None Recorded Advance Directives Directive None Recorded Payers Encounter Date Sequence Insurance Name Policy Number Policy Urias Covered Member ID Urias Member ID Guarantor Name 04/03/2024 1 [facility] [id number] Brandon Wakefield [id number] Brandon Wakefield Notes Date Note Type Note Provider Name and Address Organization Details Recorded Time 04/03/2024 text/html Abdominal Pain UCReported bypatient.source of patient informationpatient ; Patient arrived at Urgent Care ambulatory Location:[facility] Quality:pain;cramp ing Severity:moderate Duration:intermitt ent Onset/Timing:tavia r Context:no travel Modifying Factors:laying down Associated Symptoms:no fever; no chills; no blood in the urine; no heartburn; no shortness of breath; no change in bowel/bladder habits Other:denies possible Presents with severe abdominal pain. history of pancreatitis due to generics and drinking. pt stopped drinking( alcohol ) for over a years pt states that all symptoms are coming back, stomach pain, vomiting bright yellow that [place], he is very upset because he does not want to lose his job. pt also has real bad anxiety., is considering seeing a new therapist Chloé Sainz NP [address] [place], [address], [place] - [facility] 04/03/2024 15:42:13
--- OUTSIDE RECORDS SUMMARY | 2025-01-14 06:28 | XMS_ITS | Encounter Summary ---
Author Organization [facility] Address [address] [place] [address] Care Team Providers Care Product Management Analyst Name Role Phone Jesus Manuel Bernard MD Primary Care Provider Encounter Details Date Type Department Care Team (Late st Contact Info) Description 01/13/2025 Telephone Adult Medicine [facility] [address] [place] [phone] Jesus Manuel Bernard MD [address] [place] [address] Social History Tobacco Use Types Packs/Day Years Used Date Smoking Tobacco: Every Day Smokeless Tobacco: Never Alcohol Use Standard Drinks/Week Comments Not Currently [...] for your loved ones. For example, child and family services worker or elderly care for an older adult? [...] Orientation Straight 12/11/2024 11 :53 AM EST documented as of this encounter Progress Notes * Jorge L Torres - 01/13/2025 9:34 AM EDT Prior Authorization for Medication-do not complete and send this encounter unless you have the fax from the pharmacy. Is this a Cover My Meds request: Yes -- [place] Code [id number] Name of Medication doxepin 3 mg tablet Sig: Take 3 mg by mouth 1 (one) time each day. Sent to pharmacy as: doxepin 3 mg tablet Class: Normal Route: oral E-Prescribing Status: Receipt confirmed by pharmacy (01/07/2025 1:36 PM EDT) What Pharmacy did the fax come from: [facility] Pharmacy fax #: [phone] documented in this encounter Plan of Treatment Upcoming Encounters Date Type Department Care Team ([facility] st Contact Info) Description 01/26/2025 1:00 PM EDT Office Visit Adult Medicine [facility] [address] [place] [address] Jesus Manuel Bernard MD [address] [place] [address] 02/26/2025 10:45 AM EDT Office Visit [facility] [address] [phone] Chinyere Rivera MD [address] [place] [address] documented as of this encounter Visit Diagnoses Not on filedocumented in this encounter Care Teams Product Management Analyst Relationship Specialty Start Date End Date Jesus Manuel Bernard MD [address] [place] [address] PCP - General 07/13/24 documented as of this encounter
[2025-01-14 06:47] LABS: VBG Base Excess 5.3 mmol/L; VBG HCO3 33 mmol/L (22-26); VBG pCO2 62 mmHg; VBG pH 7.33 (7.32-7.43); VBG pO2 30 mmHg
[2025-01-14 07:40] VITALS: PULSE 110; RESP 26; O2SAT 88
--- NOTE | 2025-01-14 07:41 | PC.NURSE ---
Pt refusing to be admitted; pt agrees to stay long enough to have IV Zithromax complete; pt ambulated in hallway on RA; SAO2 down to 88%, HR 110 and RR 26; pt recovered after 1 minute of rest with HR 77 and SAo2 94% RA; pt resting in room with IV Zithromax infusing at this time
[2025-01-14 09:22] VITALS: BP 136/78; PULSE 98; RESP 26; TEMP 37.2; O2SAT 94
== END 2025-01-14 09:23 | disposition left against medical advice (07) ==
PROVIDERS: Emergency Provider Emergency Medicine
DX: J43.9 Emphysema, unspecified (principal); R06.02 Shortness of breath; F17.210 Nicotine dependence, cigarettes, uncomplicated; R94.31 Abnormal electrocardiogram [ECG] [EKG]; Z03.818 Encounter for observation for suspected exposure to other biological agents ruled out; Z79.899 Other long term (current) drug therapy
CPT/HCPCS: 0241U; 36415; 71045; 71250; 80053; 82803; 83735; 84484; 85025; 93005; 99284

== ENCOUNTER → 2025-01-14 02:51 | Outpatient (BNV) | payer OTHER, SELFPAY | PROVIDERS: Emergency Provider Emergency Medicine; Visit Provider Internal Medicine Cardiovascular Disease | DX: J98.4 Other disorders of lung (principal) | CPT/HCPCS: 93010 ==

== ENCOUNTER → 2025-01-14 06:02 | Outpatient (BNV) | payer OTHER, SELFPAY | PROVIDERS: Emergency Provider Emergency Medicine; Visit Provider Radiology Diagnostic Radiology | DX: R06.02 Shortness of breath (principal) | CPT/HCPCS: 71045; 71250 ==

== ENCOUNTER 2025-03-24 15:35 | Outpatient (AMB) | payer OTHER, SELFPAY ==
--- NOTE | 2025-03-24 15:38 | A.OFFVIS_ITS ---
Vital Signs 03/24/25 15:40 Height 5 ft 9 in Weight 178 lb BMI 26.3 BP 122/68 Blood Pressure Location Rt brachial Position Sitting Pulse 72 Pulse Source Pulse Oximeter Pulse Oximetry (%) 95 Oxygen Delivery Method Room Air Intake Visit Reasons: [place]ness [place] breath[place] [place] Up Allergies No Known Allergies Allergy (Verified 03/24/25 15:45) HPI HPI Shortness of breath/[facility] Follow Up: Details: Brandon is a pleasant 55 year old male, current smoker with 20 pack year history with no significant underlying medical history. He was referred by [facility] after evaluation 01/2025 related to acute respiratory distress associated with environmental factors, suggested diagnosis of COPD and mild emphysema found on chest CT. Respiratory panel negative. Empirically treated with prednisone and cefuroxime. Unfortunately patient left AMA and reports symptoms have significantly improved. He did have one other occurence of sudden dyspnea however symptoms resolved. He denies any respiratory symptoms currently. A CT scan noted possible bronchiectasis and emphysema. He managed symptoms with a rescue inhaler and experienced improvement over time, currently not using. Smoking history includes reduction to minimal tobacco use with continued marijuana consumption. Sleep concerns include suspected sleep apnea, characterized by frequent nocturnal awakenings and unproductive sleep studies. Underlying anxiety is noted, exacerbated by sleep deficits. He denies prior h/o asthma/COPD. Recent imaging suggestive of COPD. Denies prior PFT. He reports seasonal allergies, mild, however worsening. He denies occupational exposures. He reports brother,smoker, with COPD and mother with LAURA. home study [facility] Social History (Updated 03/24/25 @ 15:44 by Nel Rick CMA) Patient Tobacco Use Status: Current someday Tobacco user Cigarettes Per Day: 2 Physical Exam Vital Signs: Last Vital Signs Pulse 72 03/24/25 15:40 BP 122/68 03/24/25 15:40 Pulse Ox 95 03/24/25 15:40 Oxygen Delivery Method Room Air 03/24/25 15:40 BMI result Body Mass Index 26.3 Results Reviewed Results Reviewed: [address] [address] [address] Scan Report Signed Patient: Brandon Wakefield MR#: [id number] : 1970 Acct:[id number] Age/Sex: 54 / M ADM Date: 01/14/25 Loc: HO.ED Attending Dr: Ordering Physician: Sandra Perez MD Date of Service: 01/14/25 Procedure(s): CT chest wo IV con Accession Number(s): [id number] cc: Sandra Perez MD; Physician,Unknown ~ Report Number: [id number]: Total DLP = 319.00 mGy-cm CLINICAL HISTORY: sob, cough, r o pna vs atelectasis Exam: CT chest without intravenous contrast. Comparison: None. Findings: Images degraded by patient motion, primarily respiratory motion. Dgbr-az-xwgfgvbi emphysematous changes throughout the lungs. No focal areas of consolidation. No pleural effusion or pneumothorax. Overall heart size is within normal limits. No pathologically enlarged lymph nodes. No free fluid or free air within the upper abdomen. No acute bony abnormality. Impression: Emphysematous changes throughout the lungs without acute finding. This document has been electronically signed by: Yosvany Pittman MD on 01/14/2025 07:01:02 Dictated By: Yosvany Pittman MD Signed By: <Electronically signed by Yosvany Pittman MD in OV> 01/14/25701 DD/ 0 TD/TT: 01/14/25700 Talent Management Specialist: Assessment & Plan Assessment & Plan (1) Dyspnea: Code(s): R06.00 - Dyspnea, unspecified Category: Medical (2) Nicotine dependence, cigarettes, uncomplicated: Code(s): F17.210 - Nicotine dependence, cigarettes, uncomplicated Category: Medical (3) Ground glass opacity present on imaging of lung: Code(s): R91.8 - Other nonspecific abnormal finding of lung field Category: Medical (4) Witnessed episode of apnea: Code(s): R06.81 - Apnea, not elsewhere classified Category: Medical (5) Non-restorative sleep: Code(s): G47.8 - Other sleep disorders Category: Medical Plan We discussed the likelihood of COPD due to smoke exposure and the presence of mild emphysema, evidenced by imaging and previous clinical symptoms. The importance of a pulmonary function test to diagnose and evaluate airflow limitation was emphasized. Repeat imaging in six months is advised to monitor any progression of lung pathology with noted ggo of RUL on prior CT. The possibility of sleep apnea was addressed, with a plan to conduct a home sleep study initially and pursue an in-lab study if necessary. The patient understands the benefits of resolving airway obstruction to improve sleep quality. He understands that addressing these respiratory concerns may decrease the anxiety levels that are exacerbated by sleep disturbances. Anxiety counseling is arranged, and instructions on using the albuterol inhaler effectively were reviewed. Risks of continued smoking were discussed, and smoking cessation support was offered. All questions were answered and patient is in agreement of plan. Will follow up in 8-10 weeks or sooner if needed. Orders: Orders RT home sleep study Today G47.8 - Other sleep disorders, R06.81 - Apnea, not elsewhere classified PFT pulmonary function test Today R06.00 - Dyspnea, unspecified CT chest wo IV con Today R91.8 - Other nonspecific abnormal finding of lung field Medications: Discontinued cefuroxime axetil Discontinued Reason: Patient Completed Course 500 mg PO BID 10 tabs 0RF prednisone Discontinued Reason: Patient Completed Course 50 mg PO DAILY 4 tabs 0RF Coding Level of Care Code New Pt Level 4 (12412) Diagnoses Dyspnea R06.00 Nicotine dependence, cigarettes, uncomplicated F17.210 Ground glass opacity present on imaging of lung R91.8 Witnessed episode of apnea R06.81 Non-restorative sleep G47.8
[2025-03-24 15:40] VITALS: BP 122/68; PULSE 72; O2SAT 95; BMI 26.3
--- OUTSIDE RECORDS SUMMARY | 2025-03-24 17:47 | XMS_ITS | Clinical Summary ---
Author Organization 175 [facility] Address [address] [place] [address] Phone Care Team Providers Care Medical Staff Credentialing Coordinator Name Role Phone Jesus Manuel Bernard MD Primary Care Provider Allergies No known active allergies Medications DIETARY SUPPLEMENT ORAL Cobalamin Combinations (B-12 Plus Folic Acid) 2500-400 MCG TABLET DISPERSIBLE Route: Take 1 Tablet by mouth daily. - Oral 4 Active cholecalciferol (VITAMIN D-3) 50 mcg (2,000 unit) tablet 1 (one) time each day. Route: Take 1 Capsule by mouth daily. - Oral 4 Active gabapentin (NEURONTIN) 300 mg capsule Take 1 capsule (300 mg total) by mouth 2 (two) times a day. Start with 1 tab at bedtime for 3 days then can increase to BID if needed. 60 each 5 Active Additional Information Patient taking differently: 600 mgoral 2 times daily,Take 2 tablets nightly., Reported on 01/07/2025 doxepin 3 mg tablet Take 3 mg by mouth 1 (one) time each day. 30 tablet 5 5 Active hydrOXYzine HCL (ATARAX) 25 mg tabletIndicatio ns:Anxiety disorder, unspecified TAKE 1 TABLET BY MOUTH EVERY 8 HOURS NEEDED FOR ANXIETY 270 tablet 1 5 Active traZODone (DESYREL) 150 mg tablet TAKE 1 TABLET BY MOUTH EVERYDAY AT BEDTIME 90 tablet 1 5 Active Active Problems Problem Noted Date Diagnosed Date [...] to 2 months, I discussed with Dr. iRvera prior to filling out the form. We [...] recently, has quit drinking alcohol. He smokes 1/ ppd. Patient had MRI lumbar spine 11/06/2024 at [facility] that shows severe stenosis at L4-5 with [...] to need for general anesthesia, risk of GA or stroke, potential for no improvement in [...] Care Team Description 01/13/[address] [facility] [address] [place] [phone] Jesus Manuel Bernard MD 01/07/2025 1:00 PM EDT Office Visit Adult Medicine [address] [phone] Shannon Yen PA Primary insomnia (Primary Dx); Generalized anxiety disorder; History of alcohol abuse; Tobacco use disorder; Prediabetes; Hypercholesterolemia 12/25/2024 11:15 AM EDT Office Visit Neurosurgery [facility] [address] [place] [phone] Nel Hinton PA Spinal stenosis of lumbar region with neurogenic claudication (Primary Dx) from Last 3 Months Immunizations Name Administration [...] History Date Comments Anxiety state Alcohol dependence (CMS/HCC V24, CMS/HCC V28) Alcohol abuse with alcohol-i nduced anxiety disorder (CMS/[facility] V24, [facility] V28) 06/19/2023 History of chronic pancreatitis Depression [...] ed Within the last 3 months, ho homero many times did you visit the emergency [...] your loved ones. For example, child care supervisor or elderly care for an older adult? [...] 95 01/07/2025 1:14 PM EDT Temperature 37 C (98.6 F) 01/07/2025 1:14 PM EDT Respiratory Rate 16 [...] Care Team (Late st Contact Info) Description 04/15/2025 1:00 PM EDT Office Visit Adult Medicine [facility] [address] [place], [place] [phone] Jesus Manuel Bernard MD [address] [place] [address] Health Maintenance Due Date Last Done Comments Hepatitis A Vaccines (1 of 2 - Risk 2-dose series) 01/30/1991 Hepatitis B Vaccines (1 of 3 - 19+ 3-dose series) 01/30/1991 Zoster Vaccines (1 of 2) 01/30/2022 Colorectal Cancer Screening: Colonoscopy 09/08/2022 HIV Screening 09/08/2022 COVID-19 Vaccine (3 - 2023-2 5 season) 2024 03/20/2021, 03/01/2021 [...] this topic Medical Devices Implanted Type Area Cloth Folder Machine Device Identifier Shelf Expiration Date Model / Serial / Lot Powder Surgifoam Absorb Gel - Sna - [id number] Implanted:Qty: 1 on 12/14/2024 by Chinyere Rivera MD at [facility] [employer] Right: Spine Lumbar [employer] 09/14/20261977 / NA / [id number] Description:MIXED WITH 10,00 0 UNITS THROMBIN Procedures Procedure Name Priority Date/Time Associated Diagnosis Comments HM HEPATITIS C SCREENING Routine 07/28/2024 DEPRESSION SCREENING Routine 07/27/2024 LIPID PANEL Routine 11/03/2021 from Last 3 Months or Most Recently Relevant to Health Maintenance Results * Hepatitis C Screening (07/28/2024) [facility] Hepatitis C Screening Abstracted [facility] Provider HEALTH MAINTENANCE Final Result * Depression Screening (07/27/2024) Pathologist [facility] Depression Screening Abstracted [facility] Provider HEALTH MAINTENANCE Final Result * (ABNORMAL) Lipid panel (11/03/2021) [facility] LDL/HDL Ratio 2 0 - 4 Triglycerides 91 0 - 150 mg/dL Cholesterol 215(A) 0 - 200 mg/dL HDL 106 >=40 mg/dL LDL Cholesterol 91 0 - 100 mg/dL Blood Venous blood specimen / Unknown [facility] Provider LAB BLOOD ORDERABLES Yisel l Result from Last 3 Months or Most Recently Relevant to Health Maintenance Insurance [facility] [employer] Advance Directives * Full Code - [...] currently active code status orders. Care Teams Medical Staff Credentialing Coordinator Relationship Specialty Start Date End Date Jesus Manuel Bernard MD [address] [place] [id number] PCP - General 07/13/24
== END 2025-03-24 16:18 | disposition home or self-care (01) ==
LOC: HO.HPSW 15:36
PROVIDERS: PCP Internal Medicine; Visit Provider Nurse Practitioner Family
DX: R06.00 Dyspnea, unspecified (principal); F17.210 Nicotine dependence, cigarettes, uncomplicated; R91.8 Other nonspecific abnormal finding of lung field; R06.81 Apnea, not elsewhere classified; G47.8 Other sleep disorders
CPT/HCPCS: 99204

== ENCOUNTER → 2025-03-24 15:35 | Outpatient (BNVA) | payer OTHER, SELFPAY | PROVIDERS: PCP Internal Medicine; Visit Provider Nurse Practitioner Family | DX: R06.00 Dyspnea, unspecified (principal); R06.81 Apnea, not elsewhere classified; G47.8 Other sleep disorders; R91.8 Other nonspecific abnormal finding of lung field; F17.210 Nicotine dependence, cigarettes, uncomplicated | CPT/HCPCS: 99202 ==

== ENCOUNTER 2025-06-22 08:02 | Outpatient (REF) | payer OTHER, SELFPAY ==
--- NOTE | 2025-06-22 08:50 | PFT_ITS ---
Flows: FEV1: 96 % of predicted at 3.56 L FVC: 127 % of predicted at 6.01 L FEV1/FVC: 59 % Bronchodilator response: Absent Volumes: Total lung capacity: 130 % of predicted at 9.06 L Residual volume: 160 % of predicted at 3.06 L Slow vital capacity: 117 % of predicted at 6.01 L Expiratory reserve volume: 142 % of predicted at 1.92 L Diffusion capacity: Normal Impression: Mild obstructive ventilatory defect with no bronchodilator response. Increased total lung capacity suggests hyperinflation. Increased residual volume suggests air trapping. MTDD
[2025-06-22 08:52] VITALS: PULSE 71; O2SAT 96
== END 2025-06-22 08:03 | disposition home or self-care (01) ==
LOC: HO.RESP 08:02
PROVIDERS: PCP Nurse Practitioner Primary Care; Visit Provider Nurse Practitioner Family
DX: G47.8 Other sleep disorders (principal); R06.81 Apnea, not elsewhere classified; R06.00 Dyspnea, unspecified
CPT/HCPCS: 94010; 94640; 94727; 94729; 95806

== ENCOUNTER → 2025-06-22 09:05 | Outpatient (BNV) | payer OTHER, SELFPAY | PROVIDERS: PCP Nurse Practitioner Primary Care; Visit Provider Internal Medicine | DX: G47.33 Obstructive sleep apnea (adult) (pediatric) (principal); R06.00 Dyspnea, unspecified | CPT/HCPCS: 94060; 94727; 94729; 95806 ==

== ENCOUNTER 2025-07-07 16:00 | Outpatient (AMB) | payer OTHER, SELFPAY ==
--- NOTE | 2025-07-07 16:04 | MHC.OFFVIS ---
Vital Signs 07/07/25 16:05 Height 5 ft 9 in Weight 185 lb 2 oz BMI 27.3 BP 120/68 Blood Pressure Location Lt brachial Position Sitting Pulse 66 Pulse Source Pulse Oximeter Pulse Oximetry (%) 95 Oxygen Delivery Method Room Air Intake Visit Reasons: Shortness of breath/ CT,SS and PFT FU Allergies No Known Allergies Allergy (Verified 07/07/25 16:07) HPI HPI Shortness of breath/ CT,SS and PFT FU: Details: Brandon is a pleasant 55 year old male, current 20 pack-year smoker with underlying COPD. The patient has a history of anxiety, which he reports recently started on Prozac, significantly helping with symptoms such as chest tightness and shortness of breath. He experienced a severe anxiety episode lasting three to four weeks, during which he smoked heavily, exacerbating his respiratory symptoms. He continues to report ongoing dyspnea, dry cough, chest tightness and wheezing. Today he presents to review PFT and home sleep study. He denies any visits to urgent care hospitalizations related to respiratory distress since last visit. [facility] Social History (Updated 07/07/25 @ 16:07 by Nel Rick [facility]) Patient Tobacco Use Status: Current everyday Tobacco user Cigarette Packs Per Day: 0.5 Cigarettes Per Day: 10 Review of Systems Const Denies chills, Denies excessive sweating, Denies fever(s), Denies headache(s) and Denies night sweats Eyes Denies dry eyes, Denies irritation and Denies itchy eyes ENT Reports Normal hearing present, Denies headache(s), Reports nasal congestion and Denies sore throat Card Denies chest pain, Denies chest pain at rest, Denies chest pain with activity, Denies claudication, Denies leg edema, Denies dyspnea, Reports dyspnea on exertion, Denies orthopnea and Denies paroxysmal nocturnal dyspnea Resp Denies change in phlegm color, Denies chest congestion, Reports cough, Denies hemoptysis, Denies excessive phlegm production, Denies pain on inspiration, Denies pain with cough, Denies dyspnea, Reports dyspnea on exertion, Denies stridor and Reports wheezing Musc Denies myalgias Neuro Reports Normal hearing present and Denies headache(s) Endo Denies excessive sweating Zain/Lymph Denies lymphadenopathy Aller/Immun Denies itchy eyes, Denies seasonal rhinorrhea and Reports wheezing Physical Exam Vital Signs: Last Vital Signs Pulse 66 07/07/25 16:05 BP 120/68 07/07/25 16:05 Pulse Ox 95 07/07/25 16:05 Oxygen Delivery Method Room Air 07/07/25 16:05 BMI result Body Mass Index 27.3 Const General: cooperative, healthy appearing, comfortable, no acute distress, well developed and alert Orientation/consciousness: patient oriented x3 Limitations: no limitations HEENT Head: Yes normal to inspection, Yes normocephalic and Yes atraumatic Ears: hearing grossly normal bilaterally and external ears normal Eyes General: appearance normal, both eyes and all related structures Eyelids: Yes eyelids normal Sclerae: sclerae normal EOM: EOMs intact bilaterally Neck Neck: Yes normal visual inspection and Yes no lymphadenopathy Lymphatic: no lymphadenopathy noted Chest Chest palpation & inspection: normal inspection of the chest Resp Effort & Inspection: normal respiratory effort, able to speak in complete sentences, no audible wheezes, no cough, no stridor, not tachypneic, no tripod positioning and no use of accessory muscles Auscultation: clear to auscultation bilaterally Cardio Jugular venous distension: no JVD Rate: regular rate Rhythm: regular rhythm Skin Other: warm, dry General skin exam: no rashes or lesions noted Neuro General: patient oriented x3 Cranial nerves: Yes Normal hearing present Cognition (Neuro): normal cognition Gait exam (Neuro): Normal gait present Extrem General: Yes normal to inspection, Yes capillary refill normal, Yes no clubbing, cyanosis or edema and Yes no pedal edema Psych Appearance: grossly normal and well kempt Speech and movement: Normal speech and movement present and Clear speech present Affect: normal affect Attitude: cooperative Thought process: Normal thought process present Thought content: Normal thought content present Insight: Good insight present (Psych) Judgement: Good judgement present (Psych) Assessment & Plan Assessment & Plan (1) COPD (chronic obstructive pulmonary disease): Code(s): J44.9 - Chronic obstructive pulmonary disease, unspecified Category: Medical (2) Nicotine dependence, cigarettes, uncomplicated: Code(s): F17.210 - Nicotine dependence, cigarettes, uncomplicated Category: Medical (3) Obstructive sleep apnea: Code(s): G47.33 - Obstructive sleep apnea (adult) (pediatric) Category: Medical (4) Nocturnal hypoxemia: Code(s): G47.34 - Idiopathic sleep related nonobstructive alveolar hypoventilation Category: Medical Plan Reviewed PFT which revealed mild obstructive ventilatory defect with no bronchodilator response. Increased total lung capacity suggests hyperinflation. Increased residual volume suggests air trapping and DLCO normal. We discussed findings including initiating Anoro 1 inhalation daily for COPD, which he was in agreement. Reviewed home sleep study which revealed mild LAURA, AHI 6 however when supine AHI 10 and there was significant nocturnal hypoxemia less than 88% for 43 minutes, average oxygen saturation 85%. Discussed importance of in-lab titration study to ensure optimal pressures however he declined. Will start patient on CPAP therapy in APAP mode with pressures 6-16 cm H2O. Will send for overnight oximetry to ensure resolution of nocturnal hypoxemia versus initiating supplemental oxygen at home. Risks of continued smoking were discussed, and smoking cessation support was offered. Will enter a referral to lung screening program given smoking history. All questions were answered and patient is in agreement of plan. Will follow up in 8-10 weeks or sooner if needed. Orders: Orders CT lung screening Today F17.210 - Nicotine dependence, cigarettes, uncomplicated Medications: New umeclidinium-vilanterol 62.5-25 mcg/actuation (Anoro Ellipta) 1 inh inhalation DAILY 60 ea 3RF Coding Level of Care Code Est Pt Level 4 (34736) Diagnoses COPD (chronic obstructive pulmonary disease) J44.9 Nicotine dependence, cigarettes, uncomplicated F17.210 Obstructive sleep apnea G47.33 Nocturnal hypoxemia G47.34
[2025-07-07 16:05] VITALS: BP 120/68; PULSE 66; O2SAT 95; BMI 27.3
--- OUTSIDE RECORDS SUMMARY | 2025-07-07 16:33 | XMS_ITS | Clinical Summary ---
Author Organization [facility] Address [address] [facility] [address] [place] [phone] Phone Care Team Providers Care Ibm Bpm Architect Name Role Phone Pcp, Unknown Primary Care Provider Unavailabl e Allergies No known active allergies Medications gabapentin (NEURONTIN) 100 MG capsule Take 100 mg by mouth 2 (two) times a day. Active hydrOXYzine (ATARAX) 25 MG tablet Take 25 mg by mouth 3 (three) times a day. Active propranoloL (INDERAL) 10 MG immediate release tablet Take 10 mg by mouth. 11/18/2023 Active traZODone (DESYREL) 100 MG tablet take 1 tablet by mouth everyday at bedtime Active Active Problems Problem Noted Date Diagnosed Date Alcohol abuse with alcohol-induced anxiety disor sandy 06/19/2023 Alcohol dependence 2022 Social History Tobacco Use Types Packs/Day Years Used Date Smoking Tobacco: Never Assessed Education Answer Date Recorded Are you interested in more education? Not on zahraa e 11/29/2023 Are you concerned about learning? Not on file 11/29/2023 No 11/29/2023 No 11/29/2023 Digital Access Answer Date Recorded No 11/29/2023 No 11/29/2023 Reliable internet access at home? Not on file 11/29/2023 Device with a working camera? Not on file Sex and Gender Information Value Date Recorded Sex Assigned at Not on file Legal Sex Male 1:22 PM EST Gender Identity Not on file Sexual Orientation Not on file Last Filed Vital Signs Vital Sign Reading Time Taken Comments Blood Pressure 140/86 12/09/2023 12:11 PM EST Pulse 92 12/09/2023 11:30 AM EST Temperature 36.6 C (97.9 F) 12/09/2023 11:30 AM EST Respiratory Rate 16 12/09/2023 11:30 AM EST Oxygen Saturation - - Inhaled Oxygen Concentration - - Weight 79.4 kg (175 lb) 12/09/2023 11:30 AM EST Height 177.8 cm (5' 10 ) 12/09/2023 11:30 AM EST Body Mass Index 25.11 12/09/2023 11:30 AM EST Plan of Treatment Health Maintenance Due Date Last Done Comments LIPID PANEL 1972 DEPRESSION SCREENING 1984 SMOKING Hx and SMOKELESS TOB ACCO SCREENING 01/30/1985 HEPATITIS C SCREENING 01/30/1990 HIV ONE-TIME SCREENING (18-6 5 YEARS) 01/30/1990 SCREENING FOR DIABETES 01/30/2007 COLOGUARD 01/30/2017 COLONOSCOPY 01/30/2017 COLORECTAL CANCER SCREENING 01/30/2017 FIT TEST 01/30/2017 FOBT 01/30/2017 SIGMOIDOSCOPY 01/30/2017 VIRTUAL COLONOSCOPY 01/30/2017 PNEUMOCOCCAL VACCINES (50+ y ears) (1 of 1 - PCV) 01/30/2022 ZOSTER VACCINES (1 of 2) 01/30/2022 INFLUENZA VACCINE (#1) 2025 COVID-19 VACCINE (1 - 2023-2 5 season) 2025 Adult Td,Tdap Booster 02/01/2032 2022 HEPATITIS A VACCINES Aged Out No long er eligible based on patient's age to complete this topic HIB VACCINES Aged Out No longer eligi ble based on patient's age to complete this topic MENINGOCOCCAL VACCINES (ACWY) Aged Out No longer eligible based on patient's age to complete this topic MENINGOCOCCAL VACCINES (B) Aged Out N o longer eligible based on patient's age to complete this topic Medical Devices Not on file Insurance [facility] [address] [place], [place] [address] [facility] [address] [place] [address] [facility] [address] [place] [address] [facility] ACO American Board of Addiction Medicine (ABAM) [employer] ACO American [employer] of Addiction Medicine (ABAM) [employer] ACO Care Teams Ibm Bpm Architect Relationship Specialty Start Date End Date Pcp, Unknown PCP - General 11/29/23 Additional Source Comments The information contained in this document represents components of the legal health record. It is not the complete legal health record.[facility]
--- OUTSIDE RECORDS SUMMARY | 2025-07-07 16:33 | XMS_ITS | Clinical Summary ---
Author Organization 175 [facility] Address [address] [place] [address] Phone Care Team Providers Care Material Movers Name Role Phone Jesus Manuel Bernard MD [...] by mouth daily. - Oral 4 Active traZODone (DESYREL) 300 mg tabletIndicatio ns:Other insomnia Take 1 tablet (300 mg total) by mouth at bedtime. 90 tablet 1 5 Active Active Problems [...] Patient had MRI lumbar spine 11/06/2024 at [facility] that shows severe stenosis at L4-5 with [...] to need for general anesthesia, risk of [place] or stroke, potential for no improvement in [...] Encounters Date Type Department Care Team Description 04/15/2025 1:00 PM EDT Office Visit Adult Medicine [address] [phone] Jesus Manuel Bernard MD Other insomnia (Primary Dx); Encounter for vitamin deficiency screening from Last 3 Months Immunizations Immunization Administration Dates Next Due Influenza Quadravalent, MDCK [...] History Date Comments Anxiety state Alcohol dependence ([facility] V24, [facility] V28) Alcohol abuse with alcohol-i nduced anxiety disorder ([facility] V24, [facility] V28) 06/19/2023 History of chronic pancreatitis [...] for your loved ones. For example, child welfare specialist or elderly care for an older adult? [...] Date Recorded What is your living situation? Unrecognized valu e 01/07/2025 Sex and Gender Information Value Date Recorded Sex Assigned at Male 12/11/2024 11:53 AM EST Legal Sex Male 7:03 PM EST Gender Identity Male 12/11/2024 11:53 AM EST Sexual Orientation Straight 12/11/2024 11 :53 AM EST Obstetrics History Last Filed Vital Signs Vital Sign Reading Time Taken Comments Blood Pressure 136/78 04/15/2025 1:07 PM EDT Pulse 84 04/15/2025 1:07 PM EDT Temperature 36.7 C (98.1 F) 04/15/2025 1:07 PM EDT Respiratory Rate 15 04/15/2025 1:07 PM EDT Oxygen Saturation 90% 04/15/2025 1:07 PM EDT Inhaled Oxygen Concentration - - Weight 79.7 kg (175 lb 12.8 oz) 04/15/2025 1:07 PM EDT Height 175.3 cm (5' 9 ) 04/15/2025 1:07 PM EDT Body Mass Index 25.96 04/15/2025 1:07 PM EDT Plan of Treatment Health Maintenance Due Date Last Done Comments Colorectal Cancer Screening: Colonoscopy 1972 Hepatitis A Vaccines (1 of 2 - Risk 2-dose series) 01/30/1991 Hepatitis B Vaccines (1 of 3 - 19+ 3-dose series) 01/30/1991 Zoster Vaccines (1 of 2) 01/30/2022 HIV Screening 09/08/2022 Depression Screening 10/07/2024 07/27/2024 COVID-19 Vaccine (3 - 2024-2 6 season) 2025 03/20/2021, 03/01/2021 Influenza Vaccine (#1) 2025 , 11/03/2021 Social Influencers of Health Screening 01/07/2026 01/07/2025 Cholesterol Screening (Lipid Panel) 11/03/2026 11/03/2021 DTaP,Tdap,and Td Vaccines (2 - Td or Tdap) 02/01/2032 2022 RSV Immunization Adult Patients (1 - 1-dose 75+ series) 01/30/2047 Hepatitis C Screening Completed 07/28/2024 Pneumococcal Vaccine: 50+ Years Completed 09/02/2024 HIB Vaccines Aged Out No [...] this topic Medical Devices Implanted Type Area Form Coverer Device Identifier Shelf Expiration Date Model / Serial / Lot Powder Surgifoam Absorb Gel - Sna - [id number] Implanted:Qty: 1 on 12/14/2024 by Chinyere Rivera MD at [facility] [employer] Right: Spine Lumbar [employer] 09/14/20261977 / NA / [id number] Description:MIXED WITH 10,00 0 UNITS THROMBIN Procedures Procedure Name Priority Date/Time Associated Diagnosis Comments HEPATITIS C SCREENING Routine 07/28/2024 DEPRESSION SCREENING Routine 07/27/2024 LIPID PANEL Routine 11/03/2021 from Last 3 Months or Most Recently Relevant to Health Maintenance Results * Hepatitis C Screening (07/28/2024) [facility] Hepatitis C Screening Abstracted [facility] Provider HEALTH MAINTENANCE Final Result * Depression Screening (07/27/2024) [facility] Depression Screening Abstracted [facility] Provider HEALTH MAINTENANCE Final Result * (ABNORMAL) Lipid panel (11/03/2021) [facility] LDL/HDL Ratio 2 0 - 4 Triglycerides 91 0 - 150 mg/dL Cholesterol 215(A) 0 - 200 mg/dL HDL 106 >=40 mg/dL LDL Cholesterol 91 0 - 100 mg/dL Blood Venous blood specimen / Unknown [facility] Provider LAB BLOOD ORDERABLES Yisel l Result from Last 3 Months or Most Recently Relevant to Health Maintenance Insurance [facility] Advance Directives * Full Code [...] currently active code status orders. Care Teams Material Movers Relationship Specialty Start Date End Date Jesus Manuel Bernard MD [address] [place] [address] PCP - General 07/13/24
== END 2025-07-07 16:36 | disposition home or self-care (01) ==
LOC: HO.HPSW 16:01
PROVIDERS: PCP Internal Medicine; Visit Provider Nurse Practitioner Family
DX: J44.9 Chronic obstructive pulmonary disease, unspecified (principal); F17.210 Nicotine dependence, cigarettes, uncomplicated; G47.33 Obstructive sleep apnea (adult) (pediatric); G47.34 Idiopathic sleep related nonobstructive alveolar hypoventilation
CPT/HCPCS: 99214

== ENCOUNTER → 2025-07-07 16:00 | Outpatient (BNVA) | payer OTHER, SELFPAY | PROVIDERS: PCP Internal Medicine; Visit Provider Nurse Practitioner Family | DX: J44.9 Chronic obstructive pulmonary disease, unspecified (principal); G47.33 Obstructive sleep apnea (adult) (pediatric); G47.34 Idiopathic sleep related nonobstructive alveolar hypoventilation; F41.9 Anxiety disorder, unspecified; F17.210 Nicotine dependence, cigarettes, uncomplicated | CPT/HCPCS: 99212 ==